=== PATIENT | male | born 1985 | race Caucasian/White ===

== ENCOUNTER 2024-04-04 16:06 | Emergency (ER) | payer BC, SELFPAY ==
[2024-04-04 16:20] VITALS: BP 143/85
[2024-04-04] MEDS: ADACEL 0.5 ML IM (19:30)
[2024-04-04] MEDS: CLEOCIN 300 MG PO (19:31)
--- NOTE | 2024-04-04 20:17 | ED.GENMED ---
History of Present Illness
General
Chief Complaint: Skin Surface Trauma
Source: patient and spouse
Exam Limitations: none
Time Seen by Provider: 04/04/24 17:22
Nursing documentation reviewed up to this point in time: agreed with
Travel History
Have you had any contact with someone who has COVID-19?: No
Do you have any symptoms of coronavirus? Fever > 100 degrees, chills, cough, shortness of breath, sore throat, loss of taste or smell, muscle aches, or headache?: No
History of Present Illness
History of Present Illness:
The patient is a pleasant 38-year-old man who reports that he was using a hedge cutter, doing yard work, prior to arrival. Patient reports that the hedge cutter was not working properly and swung back, cutting his left index finger. Patient
reports his last tetanus shot was about 9 years ago. He reports that the hedge cutter was in the shed and was very dirty. Patient denies weakness and numbness of his left hand. He reports he is right-handed. There is no other area of injury. He
did not fall. Patient denies any loss of movement of the fingers of his left hand.
Past History
Past History
ED Past Medical History: GERD
ED Past Surgical History: Appendectomy
Social History
Tobacco: Former smoker
Alcohol: Other
Drug: None
Personal:
Living: with family
Employment: Employed
Family History
Family History: Other
Review of Systems
Review of Systems
Allergies reviewed?: Yes
All Other Systems: ROS reviewed and negative except as documented in HPI and ROS
Constitutional: Reports no symptoms
EENT: Reports no symptoms
Respiratory: Reports no symptoms
Cardiac: Reports no symptoms
ABD/GI: Reports no symptoms
: Reports no symptoms
Musculoskeletal: Reports other
Skin: Reports other (Left index finger laceration)
Neurological: Reports no symptoms
Endocrine: Reports no symptoms
Hematologic/Lymphatic: Reports no symptoms
Psychiatric: Reports no symptoms
Phy Exam
Physical Exam
Physical Exam:
Physical Exam
General: no apparent distress, not acutely ill. Atraumatic appearing face and head
Neck: supple. Nontender
Heart: Well-perfused. Strong pulses in bilateral upper extremities
Lungs: no acute respiratory distress.
Abdomen: Soft
Neuro: alert and oriented. no focal neurological deficits, equal sensation in hands bilaterally. 5 out of 5 strength in all fingers bilaterally
Skin: Multiple small irregularly shaped lacerations and skin tears of palmar aspect of distal second left finger
Psychiatric: well kept. interactive and cooperative
Extremities: No bony tenderness of extremities
Course
Orders/Labs/Results
Orders:
Orders
04/04/24 17:52
Finger(s)/Thumb 2 View Lt [CR Finger(s)/thumb Min 2 Vw Lt] Urgent
Comment:
Reason For Exam: trauma left index finger
04/04/24 18:03
Tetanus/Diphth/Acelpertussis [Adacel] 0.5 ml IM .ONCE ONE
04/04/24 19:20
Clindamycin HCl [Cleocin] 300 mg PO NOW STA
Vital Signs
Initial and Last Documented VS:
Initial Vital Signs
Temp Pulse Resp BP Pulse Ox
98.0 F 82 20 143/85 98
04/04/24 16:20 04/04/24 16:20 04/04/24 16:20 04/04/24 16:20 04/04/24 16:20
Last Documented Vital Signs
Temp Pulse Resp BP Pulse Ox
98.0 F 82 20 143/85 98
04/04/24 16:20 04/04/24 16:20 04/04/24 16:20 04/04/24 16:20 04/04/24 16:20
Procedures
Laceration Closure
Left Palmar Finger:
Status of Wound: dirty
Size of Wound in cm: 2.5
Description of Wound Edges: ragged and flap-poorly vascularized
Preparation: cleaned with saline
Anesthesia: Digital-Regional
Revision/Debridement: irrigate-direct pressure
Wound exploration: explored to base- no FB
Type of Closure: single layer closure
Skin Closure Material: 5-0 prolene
Number of sutures: 8
Digital Block
Location of injection for digital block: base of digit
Indiction for Digital Block: surgical repair
Was sensory exam normal prior to exam?: decreased pin prick
Type of anesthesia: 1% Lidocaine w/o EPI
Complications: none- good anesthesia
MDM/Problems Addressed
Differential Diagnosis Includes:
Left second finger laceration, left second finger fracture, finger contusion
MDM/Problems Addressed:
Patient presents with acute laceration of left distal index finger
Acute Exacerbation and/or Progression of Chronic Illness:
I suspect patient is acutely hypertensive due to anxiety and discomfort
Acute Exacerbation and/or Progression of Chronic Illness: HTN
*Radiology
Radiology exam reviewed: preliminary read by ED provider (Finger x-ray reviewed by me. No acute fracture) and radiology read reviewed
*Pulse Oximetry
Patient hypoxic: no
*EKG
Interpreted by ED Provider?: NA
*Nail Making Machine Tender Interpretation
Rate: Nail Making Machine Tender- N/A
*Critical Care Note
Total Time (30-74mins, 75-104mins- exclusive of procedures): Not Applicable
Data Reviewed
Source: patient and family
Patient Management
Social determinants of health affecting care: Living situation and Strong social support
Escalation/DeEscalation of care consider admission/obs:
Patient has excellent strength and sensation of left upper extremity. There is no sign of fracture. There is no sign of tendon injury
ED Attending Note
-
Portions of this chart may have been created with voice recognition software.� Occasional wrong word or��sound alike� substitutions may have occurred due to the inherent limitations of voice recognition software.
Discharge Plan
Departure
Patient Disposition: Home (Routine Discharge)
Date of Disposition: 04/04/24
Time of Disposition: 19:20
Patient with high blood pressure during this ER visit?: Yes
Condition: Good
Covid-19: Not Applicable
Discharge Problem:
Laceration of finger of left hand
Instructions: Wound Care (DC), Laceration Repair With Stitches (DC)
Prescriptions:
New
clindamycin HCl 300 mg capsule
300 mg PO TID Qty: 10 0RF
No Action
Protonix:
1 cap PO DAILY
oxycodone-acetaminophen 5 MG/325 MG tablet
1 - 2 tab PO Q4HPRN PRN (Reason: pain) Qty: 0 0RF
Referrals:
Luisana Cano CRNP [Family Provider] -
Stand Alone Forms: Return to Work
Activity Restrictions/Additional Instructions:
Keep your wound covered and completely dry for at least 2 days. After that, you can take off the bandage and get it wet, but pat it dry and re-bandage it quickly. You will need to keep it covered for at least 1.5 weeks, so that the wound has time
to fully scab and start to scar. You will need the 8 sutures removed in 7 to 10 days by your doctor. Please see your doctor in about 7 days.
Interventions
Interventions:
*Risk Screen - Suicide Last Done: 04/04/24 16:20
*General Assessment Last Done: 04/04/24 16:20
*Neglect/Abuse Screening Last Done: 04/04/24 16:20
*Nursing Disposition Last Done: 04/04/24 19:42
ED-Skin Assessment Last Done: 04/04/24 17:15
Discharge Date and Time
Discharge Date/Time: 04/04/24 19:43
Print Language: OMANI
== END 2024-04-04 19:43 | disposition home or self-care (01) ==
LOC: EMR 16:06
PROVIDERS: EMERGENCY PHYSICIAN Emergency Medicine; FAMILY PHYSICIAN Nurse Practitioner Adult Health
DX: S61.211A Laceration without foreign body of left index finger without damage to nail, initial encounter (principal); W29.3XXA Contact with powered garden and outdoor hand tools and machinery, initial encounter; Z87.891 Personal history of nicotine dependence; R03.0 Elevated blood-pressure reading, without diagnosis of hypertension; Z23 Encounter for immunization
CPT/HCPCS: 64450; 99285; 12001; 90471; 73140; 90715